=== PATIENT | male | born 1965 | race African-American/Black ===

== ENCOUNTER 2025-02-23 13:25 | Emergency (ER) | payer OTHER, SELFPAY ==
--- NOTE | 2025-02-23 14:16 | RAD REPORT ---
EXAM: Chest Single View HISTORY: 59 years Male CHEST PAIN COMPARISON: 05/23/2023 FINDINGS: LUNGS/PLEURA: Ill-defined possibly consolidative process at the right lung base. The lungs are otherw ise clear. CARDIAC/MEDIASTINUM: Moderate cardiomegaly. UPPER ABDOMEN: No significant abnormality. BONES: No acute abnormality. Fusion hardware in the cervical spine. LINES/TUBES/OTHER: AICD IMPRESSION: Right lower lobe consolidative airspace disease could reflect pneumonia or mass. Consider further vy luation with chest CT to better evaluate.
[2025-02-23 14:17] LABS: Absolute Basophils 0.1 K/uL (0-0.5); Absolute Lymphocytes (CBC) 1.6 K/uL (0.7-4.9); Absolute Monocytes 0.8 K/uL (0.1-1.3); Absolute Neutrophil 6.2 K/uL (1.8-8.0); Basophils % 1.1 % (0-1.3); Eosinophils % 0.1 % (0-4.4); Hematocrit 38.1 % (39.6-49.0); Hemoglobin 12.7 g/dL (13.6-17.9); Lymphocytes % 18.3 % (15.3-44.8); MCH 33.2 pg (27.0-35.0); MCHC 33.2 g/dL (32.0-36.0); Monocytes % 8.8 % (3.3-12.3); Neutrophils % 71.7 % (41.7-73.7); Nucleated Red Blood Cells % 0.2 % (0-0); Platelets 379 thou/uL (152-406); RBC Red Blood Cell Count 3.81 M/uL (4.33-5.43); Red Cell Distribution Width 15.7 % (12.1-15.2)
[2025-02-23 14:18] LABS: PT Prothrombin Time 22.7 SECONDS (10-13.0); Protime INR 2.06
[2025-02-23 14:32] LABS: Albumin 2.8 g/dL (3.4-5.0); Albumin/Globulin Ratio 0.7 (1.1-1.8); Bilirubin Direct 1.2 mg/dL (0-0.2); Bilirubin Indirect, Calculated 1.2 mg/dL (0.2-0.8); Bilirubin Total 2.4 mg/dL (0.2-1.0); Globulin 4.3 g/dL (2.3-3.5); Magnesium 1.8 mg/dL (1.6-2.4); Protein, Total 7.1 g/dL (6.4-8.2)
[2025-02-23 14:35] LABS: Troponin High Sensitivity 1042.5 pg/mL (<58.9)
--- NOTE | 2025-02-23 15:05 | RAD REPORT ---
EXAM: Chest Abd Pelvis Wo Con CLINICAL INDICATION: Male, 59 years old elevated LFTs;Chest pain TECHNIQUE: CT chest, abdomen and pelvis was performed, without IV contrast, as per department protoco l. Axial, sagittal and coronal reconstructions were obtained. One or more of the following dose reduction techniques were used: Automated exposure control, adjustment of the mA and/or kV according to the patient size, and/or iterative reconstruction. Unless otherwise specified, incidental findings do not require dedicated imaging follow-up. [id number]. COMPARISON: 05/21/2023, same-day chest x-ray FINDINGS: The lack of intravenous contrast limits the sensitivity of this exam for evaluation of solid visceral organs, vascular structures, and retroperitoneum. ---THORAX--- LOWER NECK AND CHEST WALL: Visualized thyroid gland and soft tissues are normal. Upper chest wall AIC D. LUNGS AND AIRWAYS: Consolidative airspace disease present in the right middle lobe and right lower lo be with air bronchograms.No dominant or clearly suspicious nodule identified. PLEURA: Small right pleural effusion. No pneumothorax. MEDIASTINUM AND LYMPH NODES: No mediastinal mass or fluid collection. Normal size mediastinal, hilar, and axillary lymph nodes. THORACIC AORTA: No thoracic aortic aneurysm. PULMONARY ARTERIES: Caliber is within normal limits. HEART: Moderate cardiomegaly. Mild coronary artery calcifications.No significant pericardial effusion . ---ABDOMEN/PELVIS--- UPPER GI: No significant abnormality. LIVER: Hepatic steatosis, but otherwise unremarkable. GALLBLADDER/BILE DUCTS: No biliary ductal dilatation.? PANCREAS: Atrophy but no acute findings. Dilated pancreatic duct down to about the level of the head. Though only partially included in the [id number], this was present on the CT from 05/23/2023. No pancreatic calcifications identified. No discrete mass is seen though limited due to lack of IV contr ast. SPLEEN: Unremarkable. ADRENALS: No adrenal masses. KIDNEYS AND URETERS: No hydronephrosis.Limited evaluation for renal lesions in the absence of IV cont rast.No renal calculi.No ureteral calculi. ABDOMINAL AORTA AND OTHER VESSELS: Normal caliber aorta and IVC. PERITONEUM: Nonspecific free fluid. LYMPH NODES: No pathologic lymphadenopathy. ABDOMINAL WALL: Unremarkable SMALL BOWEL/COLON: Small bowel has normal course and caliber. No colonic wall thickening or pericolon ic inflammatory changes.Normal appendix. URINARY BLADDER: Underdistended but grossly unremarkable. REPRODUCTIVE ORGANS: No pathologic process. ---COMBINED--- MUSCULOSKELETAL: Grade 1 anterolisthesis of L4 and L5. No acute fracture. ADDITIONAL FINDINGS: Mild body wall edema. IMPRESSION: Consolidative airspace disease in the right lower and right middle lobes with air bronchograms small right pleural effusion probably represents pneumonia. Small volume of pelvic free fluid which is abnormal but nonspecific. This could be secondary to heart failure and volume overload. In addition, elevated LFTs may be related to heart failure.
--- NOTE | 2025-02-23 15:08 | EDPHYS ---
Physician Documentation [facility] Name: Hernandez Lance Age: 59 yrs Sex: Male : 1965 Arrival Date: 02/23/2025 Time: 13:25 Bed 6 Private MD: ED Physician Melissa Crocker HPI: 02/23 13:34 This 59 yrs old Black Male presents to ER via Unassigned with complaints of Chest Pain. sb4 13:34 Patient reports intermittent chest pain since last night. He reports pain is substernal sb4 and feels like heaviness. Reports associated shortness of breath. Has a significant cardiac history, reports compliance with all of his medications. Additionally, he reports swelling on his legs bilaterally. States he was hospitalized at [facility] last week. Historical: - Allergies: 14:07 Mustard; bp 14:07 PENICILLINS; bp - PMHx: 14:07 diabetes mellitus; CHF; bp 17:48 Drug abuse; Cardiomyopathy; sb4 - PSHx: 14:07 Neck sx; bp 17:48 ICD; sb4 - Immunization history:: Adult Immunizations up to date. - Infectious Disease History:: Denies. - Social history:: Smoking status: Patient denies any tobacco usage or history of. ROS: 13:34 Constitutional: Negative for fever, chills, and weight loss, sb4 13:34 Cardiovascular: Positive for chest pain, edema, 13:34 All other systems are negative, Exam: 13:35 Head/Face: Normocephalic, atraumatic. Eyes: Extra-ocular motions intact. Periorbital sb4 areas with no swelling, redness, or edema. ENT: Mucous membranes moist. Cardiovascular: Regular rate and rhythm with a normal S1 and S2. Respiratory: No increased work of breathing, no retractions or nasal flaring. Abdomen/GI: Soft, non-tender, no distension. Skin: Warm, dry with normal turgor. Normal color with no rashes, no lesions, and no evidence of cellulitis. 13:35 Constitutional: The patient appears alert, awake, uncomfortable, 15:48 Cardiovascular: Edema: 2+ edema to level of left midcalf and right midcalf, sb4 Vital Signs: 13:30 BP 111 / 76; Pulse 100; Resp 16; Temp 98; Pulse Ox 99% on 2 lpm NC; bp 14:35 BP 111 / 85; Pulse 103; Resp 24; Pulse Ox 88% on 2 lpm NC; Weight 73 kg; Height 5 ft. 7 bp in. ; 16:30 BP 90 / 73; Pulse 99; Resp 38; Pulse Ox 97% on 4 lpm NC; bp 16:45 BP 99 / 79; Pulse 104; Resp 44; Pulse Ox 92% ; bp 17:00 BP 52 / 23; Pulse 108; bp 17:33 BP 76 / 28; Pulse 106; Resp 36; bp 19:54 BP 90 / 74; Pulse 98; Resp 20; Pulse Ox 100% on BiPAP; FiO2 50 %; Pain 0/10; bm8 20:56 BP 105 / 79; Pulse 90; Resp 18; Temp 98(A); Pulse Ox 99% on BiPAP; FiO2 50 %; Pain 0/10;bm8 14:35 Body Mass Index 25.21 (73.00 kg, 170.18 cm) bp 19:54 Pain Scale: Adult bm8 20:56 Pain Scale: Adult bm8 Nika Coma Score: 19:54 Eye Response: spontaneous(4). Motor Response: obeys commands(6). Verbal Response: bm8 oriented(5). Total: 15. 20:56 Eye Response: spontaneous(4). Motor Response: obeys commands(6). Verbal Response: bm8 oriented(5). Total: 15. Procedures: 17:31 Central Line: the site was prepped with in sterile fashion, a triple lumen catheter was sw6 inserted, in the right femoral vein, in 1 attempts. placement was verified, by blood return, the site was dressed with Tegaderm, using sterile technique, the patient tolerated the procedure, well. MDM: 13:28 Medical Screening Exam initiated sb4 13:59 Differential diagnosis: CHF exacerbation, NSTEMI, unstable angina. sb4 15:07 Data reviewed: vital signs, nurses notes, lab test result(s), EKG, radiologic studies, sb4 I have discussed the patient's presentation/case with the attending Emergency Department Physician;. Care significantly affected by the following chronic conditions: Diabetes, Hypertension, Congestive Heart Failure. Counseling: I had a detailed discussion with the patient and/or guardian regarding the historical points, exam findings, and any diagnostic results supporting the discharge/admit diagnosis, lab results, radiology results, the need to transfer to another facility, [facility] does not immediately have the required specialist. 15:25 ED course: no laborer chemical processing available at this time, will transfer for laborer chemical processing services. sb4 16:24 Management of patient was discussed with the following: Stock Shaper: called Dr. New, sb4 patient's clean up person, no response. 17:32 ED course: Patient rapidly decompensated. He became hypotensive, tachycardic, sb4 tachypneic, hypoxic, and diaphoretic. Repeat EKG did not show any acute changes. Repeat troponin was also unchanged. Blood sugar 136. Attending came and assessed patient at bedside, patient was placed on BiPAP and femoral central line was placed - dobutamine initiated. Transfer was escalated to cardiac ICU. Spoke with heart failure specialist at [facility], who agreed to consult. 17:47 ED course: Spoke with patient's clean up person, Dr. New, states that patient's sb4 congestive heart failure is secondary to cardiomyopathy and drug abuse-amphetamines and cocaine. States that patient's blood pressure runs chronically low, typically 80s systolic. He had a cardiac catheterization done last month that was negative for any coronary artery disease.. 20:46 Post IV fluid administration reassessment for Sepsis: Client not prescribed the 30 sb4 mL/kg IVF due to: concern for heart failure. Amount of IVF prescribed: 0 Sepsis focused reassessment complete. Other: blood pressure is now 101/81. ED course: I believe shock is cardiogenic in nature and not due to infection (pneumonia) therefore I did not give the 30 cc/kg fluid bolus or any IV fluids (0 mL IVF) at all as the patient is in severe heart failure. Vasopressors were initiated, dobutamine, which stabilized patient's blood pressure appropriately. Sepsis reassessment complete.. 02/23 13:28 Order name: Basic Metabolic Panel; Complete Time: 14:36 sb4 02/23 13:28 Order name: CBC with Diff; Complete Time: 14:21 sb4 02/23 13:28 Order name: LFT's; Complete Time: 14:36 sb4 02/23 13:28 Order name: Magnesium; Complete Time: 14:36 sb4 02/23 13:28 Order name: NT PRO-BNP; Complete Time: 14:36 sb4 02/23 13:28 Order name: PT-INR; Complete Time: 14:19 4 02/23 13:28 Order name: Troponin HS; Complete Time: 14:36 4 02/23 15:06 Order name: Blood Culture Adult (2) [facility] 02/23 15:06 Order name: Lactate w/ 2H reflex if indic.; Complete Time: 16:46 4 02/23 16:23 Order name: COVID-19 Ag + Flu A+B Ag; Complete Time: 17:15 bd 02/23 16:28 Order name: Troponin High Sensitivity; Complete Time: 17:16 sb4 02/23 16:46 Order name: Ghost Lactate-NO COLLECT Timer; Complete Time: 18:48 EDMS 02/23 16:52 Order name: Glucose, Ancillary Testing; Complete Time: 16:56 EDMS 02/23 17:31 Order name: CBC w/o diff; Complete Time: 18:33 4 02/23 17:33 Order name: ABG Arterial Blood Gas; Complete Time: 17:36 EDMS 02/23 17:39 Order name: UDS; Complete Time: 18:09 4 02/23 18:47 Order name: ABG 6 02/23 20:08 Order name: Ptt, Activated; Complete Time: 20:48 8 02/23 20:44 Order name: Lactate Sepsis 2 HR Follow-up; Complete Time: 20:45 EDMS 02/23 13:28 Order name: XRAY Chest (1 view); Complete Time: 14:16 4 02/23 14:37 Order name: CT Chest Abdomen Pelvis W/O Contrast; Complete Time: 15:06 02/23 13:28 Order name: EKG; Complete Time: 13:29 02/23 13:28 Order name: Cardiac monitoring; Complete Time: 14:02 02/23 13:28 Order name: EKG - Nurse/Tech; Complete Time: 14:02 02/23 13:28 Order name: IV Saline Lock; Complete Time: 14:02 02/23 13:28 Order name: Labs collected and sent; Complete Time: 14:02 4 02/23 13:28 Order name: O2 Per Protocol; Complete Time: 14:02 02/23 13:28 Order name: O2 Sat Monitoring; Complete Time: 14:02 sb4 EC:55 Rate is 98 beats/min. Rhythm is regular, Normal Sinus Rhythm. Left axis deviation sb4 noted. VT interval is normal at 168 msec. QRS interval is normal at 114 msec. QT interval is prolonged at 410 msec. No Q waves. Interpreted by me. Reviewed by me. 17:56 Rate is 107 beats/min. Rhythm is regular, Sinus tachycardia. Left axis deviation noted. sb4 VT interval is normal at 160 msec. QRS interval is normal at 108 msec. QT interval is normal at 376 msec. No Q waves. T waves are Normal. No ST changes noted. Interpreted by me. Reviewed by me. Administered Medications: 16:05 Drug: AZITHromycin IVPB 500 mg IVPB once over 1 hrs; (mix in 250 mL NS) Route: IVPB; bp Infused Over: 1 hrs; Site: right hand; 20:00 Follow up: Response: No adverse reaction; IV Status: Completed infusion bm8 16:05 Drug: Rocephin IV 1 grams IV at calculated rate once; Given slow IV push per pharmacy bp instructions Route: IV; Rate: calculated rate; Site: right hand; 20:00 Follow up: Response: No adverse reaction; IV Status: Completed infusion bm8 16:05 Drug: Furosemide IVP 20 mg IVP once; give over 2 minutes Route: IVP; Site: right hand; bp 20:01 Follow up: Response: No adverse reaction bm8 16:05 Drug: Potassium Chloride PO 40 mEq PO once Route: PO; bp 20:00 Follow up: Response: No adverse reaction bm8 16:07 Drug: Heparin (VT-Bolus No thrombolytic) - HEParin IVP 60 units/kg IVP once; Max 5000 db units {Co-Signature: bp (Ramesh Wise RN).} Route: IVP; Site: right hand; 20:01 Follow up: Response: No adverse reaction bm8 16:07 Drug: Heparin (VT Drip) 12 units/kg/hr - ([place] [address] units, D5W IV 500 ml) IV at db calculated rate Per protocol; Max initial rate 1000 units/hr {Co-Signature: bp (Ramesh Wise RN).} Route: IV; Rate: calculated rate; Site: right hand; 21:36 Follow up: Response: No adverse reaction; IV Status: Infusion continued upon transfer bm8 17:32 Drug: DOBUTamine IV (250 mg/250mL premix) 2.5 mcg/kg/min IV at calculated rate See bp Administration Instructions; Recommended max rate 20 mcg/kg/min; Titrate 2.5 mcg/kg/min as often as every 5 minutes to achieve goal (see titration policy); Goal parameter MAP greater than 65 mmHg. Route: IV; Rate: calculated rate; Site: right femoral; 21:36 Follow up: Response: No adverse reaction; IV Status: Infusion continued upon transfer bm8 18:33 Drug: Cefepime IVPB 1 grams IVPB at 200 ml/hr once over 30 mins; (mix in NS 100 mL) bp Route: IVPB; Rate: 200 ml/hr; Infused Over: 30 mins; Site: right femoral; 18:50 Follow up: IV Status: Completed infusion bp 18:50 Drug: vancoMYCIN IVPB 1 grams IVPB once over 2 hrs Route: IVPB; Infused Over: 2 hrs; bp Site: right femoral; 20:00 Follow up: Response: No adverse reaction; IV Status: Completed infusion bm8 Disposition Summary: 02/23/25 15:07 Transfer Ordered Notes: Transfer Location: [facility] sb4 Reason: Higher level of care sb4 Condition: Fair sb4 Problem: new sb4 Symptoms: are unchanged sb4 Accepting Physician: hospitalist(02/23/25 21:35) bm8 Diagnosis - Subsequent non-ST elevation (NSTEMI) myocardial infarction sb4 - Pneumonia, unspecified organism sb4 - Cardiogenic shock sb4 Forms: - Medication Reconciliation Form sb4 - SBAR form sb4 Critical care time excluding procedures: 15:43 Critical care time: Bedside Care: 20 minutes, Consultation: 15 minutes. Total time: 35 sb4 minutes Signatures: Dispatcher [employer] EDMS Ramesh Wise RN RN bp Shauna Devlin RN RN Catie Street PA-C PA-C sb4 Leland Arteaga RN RN bm8 Melissa Crocker MD MD sw6 Ramesh Wise RN bp Corrections: (The following items were deleted from the chart) 14:07 14:07 PMHx: "Borderline" HTN; bp bp 17:16 15:07 hospitalist sb4 sb4 17:16 15:07 Sepsis, unspecified organism sb4 sb4 17:36 17:32 ED course: Patient rapidly decompensated. He became hypotensive, tachycardic, sb4 tachypneic, and hypoxic. Repeat EKG did not show any acute changes. Repeat troponin was also unchanged. Blood sugar 136. Attending came and assessed patient at bedside, patient was placed on BiPAP and femoral central line was placed - dobutamine initiated. Transfer was escalated to cardiac ICU. Spoke with heart failure specialist at [facility], who agreed to consult. sb4 17:58 14:07 PMHx: Hypertensive disorder; bp sb4 18:49 18:49 LACTATE+C.LAB.BRZ ordered. EDMS EDMS 21:13 20:46 Post IV fluid administration reassessment for Sepsis: Client not prescribed the sb4 30 mL/kg IVF due to: concern for heart failure. Amount of IVF prescribed: 0 Sepsis focused reassessment complete. sb4 21:13 20:46 ED course: I believe shock is cardiogenic in nature and not due to infection sb4 (pneumonia) therefore I did not give any IV fluids as the patient is in severe heart failure. Vasopressors were initiated, dobutamine, which stabilized patient's blood pressure appropriately. Sepsis reassessment complete.. sb4 21:35 17:16 hospitalist sb4 bm8
--- NOTE | 2025-02-23 15:08 | ER ---
Nurse's Notes [facility] Name: Hernandez Lance Age: 59 yrs Sex: Male : 1965 Arrival Date: 02/23/2025 Time: 13:25 Bed 6 Private MD: Diagnosis: Subsequent non-ST elevation (NSTEMI) myocardial infarction;Pneumonia, unspecified organism;Cardiogenic shock Presentation: 02/23 13:30 Chief complaint: EMS states: CP SINCE LAST PM. Coronavirus screen: At this time, the bp client does not indicate any symptoms associated with coronavirus-19. Ebola Screen: No symptoms or risks identified at this time. Initial Sepsis Screen: Does the patient meet any 2 criteria? No. Patient's initial sepsis screen is negative. Does the patient have a suspected source of infection? No. Patient's initial sepsis screen is negative. Risk Assessment: Do you want to hurt yourself or someone else? Patient reports no desire to harm self or others. Onset of symptoms is unknown. 13:30 Method Of Arrival: EMS: [facility] bp 13:30 Acuity: JULIAN 3 bp Triage Assessment: 14:07 General: Appears in no apparent distress. unkempt, Behavior is cooperative, appropriate bp for age, drowsy. Pain: Complains of pain in chest. EENT: No deficits noted. Neuro: Level of Consciousness is alert, obeys commands, lethargic, Oriented to Appropriate for age. Cardiovascular: Reports chest pain, Rhythm is sinus tachycardia. Respiratory: Reports shortness of breath. GI: No signs and/or symptoms were reported involving the gastrointestinal system. : No signs and/or symptoms were reported regarding the genitourinary system. Derm: No deficits noted. Musculoskeletal: No deficits noted. Historical: - Allergies: 14:07 Mustard; bp 14:07 PENICILLINS; bp - PMHx: 14:07 diabetes mellitus; CHF; bp 17:48 Drug abuse; Cardiomyopathy; sb4 - PSHx: 14:07 Neck sx; bp 17:48 ICD; sb4 - Immunization history:: Adult Immunizations up to date. - Infectious Disease History:: Denies. - Social history:: Smoking status: Patient denies any tobacco usage or history of. Screenin:09 [facility] ED Fall Risk Assessment (Adult) History of falling in the last 3 months, bp including since admission No falls in past 3 months (0 pts) Confusion or Disorientation No (0 pts) Intoxicated or Sedated No (0 pts) Impaired Gait No (0 pts) Mobility Assist Device Used No (0 pt) Altered Elimination No (0 pt) Score/Fall Risk Level 0 - 2 = Low Risk Oriented to surroundings. Abuse screen: Denies threats or abuse. Denies injuries from another. Nutritional screening: No deficits noted. Tuberculosis screening: No symptoms or risk factors identified. Assessment: 14:09 General: Appears distressed, Behavior is cooperative, appropriate for age, drowsy. bp Pain: Pain does not radiate. Pain began 1 day ago. 16:13 Reassessment: Attempted to initiate transfer with [facility] twice. No answer. Will ss call again shortly. 17:04 Reassessment: ACUTE STATUS CHANGE NOTED. ERP AND ATTENDING TO B/S. PT DIAPHORETIC, bp DECREASED LOC. 17:11 Reassessment: BIPAP: 16/5, RATE 18, 45%, TV 492. bp 19:54 General: Appears in no apparent distress. comfortable, Behavior is calm, cooperative, bm8 appropriate for age. Pain: Denies pain. Neuro: No deficits noted. Level of Consciousness is awake, alert, obeys commands, Oriented to person, place, situation. Cardiovascular: Heart tones S1 S2 present Capillary refill is > 3 seconds is sluggish in bilateral fingers Patient's skin is warm and dry. Rhythm is sinus rhythm with multifocal PVCs. Respiratory: Airway Respiratory effort is even, unlabored, Respiratory pattern is regular, symmetrical, on Bipap Patient placed on BiPAP: Inspiratory Pressure: 16 Expiratory (EPAP) Pressure: 5 FiO2%: 50 Respiratory Rate: 18 Breath sounds are clear bilaterally. GI: No signs and/or symptoms were reported involving the gastrointestinal system. : No signs and/or symptoms were reported regarding the genitourinary system. EENT: No signs and/or symptoms were reported regarding the EENT system. Derm: No signs and/or symptoms reported regarding the dermatologic system. Musculoskeletal: No signs and/or symptoms reported regarding the musculoskeletal system. 20:56 Reassessment: Patient appears in no apparent distress at this time. No changes from bm8 previously documented assessment. Patient is alert, oriented x 3, equal unlabored respirations, skin warm/dry/pink. report given to NURYS Rodriguez at [facility] Patient states symptoms have improved. Vital Signs: 13:30 BP 111 / 76; Pulse 100; Resp 16; Temp 98; Pulse Ox 99% on 2 lpm NC; bp 14:35 BP 111 / 85; Pulse 103; Resp 24; Pulse Ox 88% on 2 lpm NC; Weight 73 kg; Height 5 ft. 7 bp in. ; 16:30 BP 90 / 73; Pulse 99; Resp 38; Pulse Ox 97% on 4 lpm NC; bp 16:45 BP 99 / 79; Pulse 104; Resp 44; Pulse Ox 92% ; bp 17:00 BP 52 / 23; Pulse 108; bp 17:33 BP 76 / 28; Pulse 106; Resp 36; bp 19:54 BP 90 / 74; Pulse 98; Resp 20; Pulse Ox 100% on BiPAP; FiO2 50 %; Pain 0/10; bm8 20:56 BP 105 / 79; Pulse 90; Resp 18; Temp 98(A); Pulse Ox 99% on BiPAP; FiO2 50 %; Pain 0/10;bm8 14:35 Body Mass Index 25.21 (73.00 kg, 170.18 cm) bp 19:54 Pain Scale: Adult bm8 20:56 Pain Scale: Adult bm8 [place] Coma Score: 19:54 Eye Response: spontaneous(4). Motor Response: obeys commands(6). Verbal Response: bm8 oriented(5). Total: 15. 20:56 Eye Response: spontaneous(4). Motor Response: obeys commands(6). Verbal Response: bm8 oriented(5). Total: 15. ED Course: 13:28 Patient arrived in ED. sb4 13:28 [facility] sb4 13:28 Melissa Crocker MD is Attending Physician. sb4 13:40 Ramesh Wise, NURYS is Primary Nurse. bp 14:02 Initial lab(s) drawn, by me, sent to lab. EKG done, by ED staff, reviewed by Catie Hinojosa PA-C. Inserted saline lock: 22 gauge in right hand, using aseptic technique. Blood collected. Flushed with 10 mL NS. 14:07 Triage completed. bp 14:07 Arm band placed on. bp 14:08 XRAY Chest (1 view) In Process Unspecified. EDMS 14:09 Oxygen administration via nasal cannula \\T\\ 2L/min. bp 14:09 Patient has correct armband on for positive identification. Client placed on continuous bp cardiac and pulse oximetry monitoring. NIBP monitoring applied. non emergency services ambulance driver on. Pulse ox on. NIBP on. 14:50 CT Chest Abdomen Pelvis W/O Contrast In Process Unspecified. EDMS 16:26 initiated transfer to [facility]. bd 19:54 Patient transferred, IV remains in place. bm8 19:54 Provided Education on: need for transfer. bm8 20:56 No provider procedures requiring assistance completed. bm8 Administered Medications: 16:05 Drug: AZITHromycin IVPB 500 mg IVPB once over 1 hrs; (mix in 250 mL NS) Route: IVPB; bp Infused Over: 1 hrs; Site: right hand; 20:00 Follow up: Response: No adverse reaction; IV Status: Completed infusion bm8 16:05 Drug: Rocephin IV 1 grams IV at calculated rate once; Given slow IV push per pharmacy bp instructions Route: IV; Rate: calculated rate; Site: right hand; 20:00 Follow up: Response: No adverse reaction; IV Status: Completed infusion bm8 16:05 Drug: Furosemide IVP 20 mg IVP once; give over 2 minutes Route: IVP; Site: right hand; bp 20:01 Follow up: Response: No adverse reaction bm8 16:05 Drug: Potassium Chloride PO 40 mEq PO once Route: PO; bp 20:00 Follow up: Response: No adverse reaction bm8 16:07 Drug: Heparin (ME-Bolus No thrombolytic) - HEParin IVP 60 units/kg IVP once; Max 5000 db units {Co-Signature: bp (Ramesh Wise RN).} Route: IVP; Site: right hand; 20:01 Follow up: Response: No adverse reaction bm8 16:07 Drug: Heparin (ME Drip) 12 units/kg/[place] - ([place] [address] units, D5W IV 500 ml) IV at db calculated rate Per protocol; Max initial rate 1000 units/hr {Co-Signature: bp (Ramesh Wise RN).} Route: IV; Rate: calculated rate; Site: right hand; 21:36 Follow up: Response: No adverse reaction; IV Status: Infusion continued upon transfer bm8 17:32 Drug: DOBUTamine IV (250 mg/250mL premix) 2.5 mcg/kg/min IV at calculated rate See bp Administration Instructions; Recommended max rate 20 mcg/kg/min; Titrate 2.5 mcg/kg/min as often as every 5 minutes to achieve goal (see titration policy); Goal parameter MAP greater than 65 mmHg. Route: IV; Rate: calculated rate; Site: right femoral; 21:36 Follow up: Response: No adverse reaction; IV Status: Infusion continued upon transfer bm8 18:33 Drug: Cefepime IVPB 1 grams IVPB at 200 ml/hr once over 30 mins; (mix in NS 100 mL) bp Route: IVPB; Rate: 200 ml/hr; Infused Over: 30 mins; Site: right femoral; 18:50 Follow up: IV Status: Completed infusion bp 18:50 Drug: vancoMYCIN IVPB 1 grams IVPB once over 2 hrs Route: IVPB; Infused Over: 2 hrs; bp Site: right femoral; 20:00 Follow up: Response: No adverse reaction; IV Status: Completed infusion bm8 Medication: 14:09 VIS not applicable for this client. bp Outcome: 15:07 ER care complete, transfer ordered by . sb4 20:56 Transferred by helicopter to [facility], Transfer form completed. bm8 X-rays sent w/ patient. 20:56 Condition: stable 20:56 Instructed on the need for transfer, Demonstrated understanding of follow-up care, medications, 21:35 Patient left the ED. bm8 Signatures: Dispatcher [employer] EDMS Venus Mckinney Shelby, RN RN ss Ramesh Wise, NURYS NUNO bp Shauna Devlin RN RN db Brown, Sophia, PA-C PA-C sb4 Leland Arteaga RN RN bm8 Ramesh Wise RN bp Corrections: (The following items were deleted from the chart) 14:07 14:07 PMHx: "Borderline" HTN; bp bp 14:58 14:35 BP 111 / 85; Pulse 103bpm; Resp 24bpm; Pulse Ox 88% 2 lpm Nasal Cannula; bp bp 17:58 14:07 PMHx: Hypertensive disorder; bp sb4
[2025-02-23] MEDS ORDERED: HEPARIN 5000 UNIT/ML 1 ML VIAL ONE (15:39)
[2025-02-23] MEDS ORDERED: FUROSEMIDE 20 MG/ 2ML VIAL ONE (15:39)
[2025-02-23] MEDS ORDERED: AZITHROMYCIN 500 MG INJ IVPB ONE (15:39)
[2025-02-23] MEDS ORDERED: CEFTRIAXONE 1000 MG/VIAL ONE (15:39)
[2025-02-23] MEDS ORDERED: POTASSIUM CL SA 10 MEQ TAB PO ONE (15:40)
[2025-02-23] MEDS ORDERED: NA CHLORIDE 0.9% 250 ML ONE ×2 (15:40→18:17)
[2025-02-23] MEDS ORDERED: HEPARIN/D5W 25,000 UNIT/500 ML BAG IV ONE (15:40)
[2025-02-23] MEDS ORDERED: NOREPINEPHRINE BITARTRATE/D5W 0 MG/0 ML BAG IV ONE (17:06)
[2025-02-23] MEDS ORDERED: DOBUTAMINE 250 MG/250 ML BAG IV ONE (17:07)
[2025-02-23 17:14] LABS: Influenza A Ag Negative; Influenza B Ag Negative; SARS-CoV-2 Antigen Rapid Res Negative (Negative)
[2025-02-23 17:33] LABS: Blood Gas Oxyhemoglobin 68.9 % (94-97); Blood O2 Saturation 72.4 % (92-98.5)
[2025-02-23 18:03] LABS: Hemoglobin 13.1 g/dL (13.6-17.9); MCH 33.1 pg (27.0-35.0); MCHC 32.9 g/dL (32.0-36.0); MCV 100.6 fL (80-100); MPV 8.1 fL (7.6-11.3); Platelets 399 thou/uL (152-406); RBC Red Blood Cell Count 3.98 M/uL (4.33-5.43); Red Cell Distribution Width 15.4 % (12.1-15.2)
[2025-02-23 18:09] LABS: Barbiturates NEGATIVE (NEGATIVE); Benzodiazepines POSITIVE (NEGATIVE); Cocaine NEGATIVE (NEGATIVE); METHAMPHETAM NEGATIVE (NEGATIVE); Methadone NEGATIVE (NEGATIVE); Opiates NEGATIVE (NEGATIVE); Phencyclidine NEGATIVE (NEGATIVE); THC Cannibis NEGATIVE (NEGATIVE)
[2025-02-23] MEDS ORDERED: NA CHLORIDE 0.9% 100 ML ONE (18:17)
[2025-02-23] MEDS ORDERED: VANCOMYCIN 1 GM/VIAL ONE (18:17)
[2025-02-23] MEDS ORDERED: CEFEPIME 1 GM/VIAL ONE (18:18)
[2025-02-23 22:20] VITALS: TEMP 98
[2025-02-23 22:32] VITALS: BP 105/79; O2SAT 99
--- NOTE | 2025-02-27 12:21 | EKG ---
Test Date: 2025-02-23 Test Time: 16:41:00 Hospice/Home Health Aide: BP MEASUREMENT RESULTS: Intervals: Rate: 107 MS: 160 QRSD: 108 QT: 376 QTc: 501 [place]: P: 80 MS: 160 QRS: -70 T: 77 INTERPRETIVE STATEMENTS: Sinus tachycardia Biatrial enlargement Left axis deviation Anterior infarct, age undetermined Abnormal ECG Compared to ECG 02/23/2025 13:52:13 Sinus rhythm no longer present Prolonged QT interval no longer present Myocardial infarct finding still present Electronically Signed On 02-27-25 12:11:30 CDT by Ricky Forde
--- NOTE | 2025-02-27 12:22 | EKG ---
Test Date: 2025-02-23 Test Time: 13:52:13 Internal Medicine Specialist: BP MEASUREMENT RESULTS: Intervals: Rate: 98 TX: 168 QRSD: 114 QT: 410 QTc: 523 [place]: P: 68 TX: 168 QRS: -50 T: 44 INTERPRETIVE STATEMENTS: Normal sinus rhythm Biatrial enlargement Left axis deviation Anterior infarct, age undetermined Prolonged QT Abnormal ECG Compared to ECG 05/23/2023 08:58:12 Left-axis deviation now present Myocardial infarct finding now present Prolonged QT interval now present Sinus tachycardia no longer present T-wave abnormality no longer present Possible ischemia no longer present Electronically Signed On 02-27-25 12:11:42 CDT by Ricky Forde
== END 2025-02-23 21:35 | disposition short-term general hospital (02) ==
LOC: ER 13:25
DX: I22.2 Subsequent non-ST elevation (NSTEMI) myocardial infarction (principal); I21.9 Acute myocardial infarction, unspecified; R57.0 Cardiogenic shock; J18.9 Pneumonia, unspecified organism; I50.9 Heart failure, unspecified; E11.9 Type 2 diabetes mellitus without complications; Z11.52 Encounter for screening for COVID-19
CPT/HCPCS: 93005 ×2; 87040 ×2; 85025; 80048; 36415; 83735; 85610; 82947; 80076; 83605 ×2; 85730; 85027; 84484 ×2; 83880; 80307; 71250; 74176; 71045; 82805; 99285; 36556; 87428; 36600; 94660; J1644; J1938; J3370; J7050 ×2; J1250; J0692; J0696